=== PATIENT | male | born 1965 | race Caucasian/White ===

== ENCOUNTER 2019-08-19 20:51 | Emergency (ER) | payer BC ==
[2019-08-19] MEDS ORDERED: Lidocaine 1% with EPINEPHrine 1:100,000 10 ML MDV INJECT ONE (21:12)
[2019-08-19] MEDS ORDERED: Lidocaine 1% with EPINEPHrine 1:100,000 20 ML MDV ONE (21:14)
--- NOTE | 2019-08-19 21:32 | EDM.PDOC ---
ED HPI GENERAL MEDICAL PROBLEM - General Chief Complaint: Skin Complaint Stated Complaint: BLEEDING IN THE BACK Time Seen by Provider: 08/19/19 21:31 Source of Information: Reports: Patient History Limitations: Reports: No Limitations - History of Present Illness INITIAL COMMENTS - FREE TEXT/NARRATIVE: HISTORY AND PHYSICAL: History of present illness: Patient is a 53-year-old male presents to the ED with complaint of bleeding. Patient states this morning he had an abscess drained from his left buttock in [place]. He states it has been bleeding all day and soaked through the dressing that he changed this afternoon. He is on xarelto for history of pulmonary embolism. He denies any chest pain, shortness of breath, lightheaded, dizziness , syncope or pre syncope. Review of systems: As per history of present illness and below otherwise all systems reviewed and negative. Past medical history: As per history of present illness and as reviewed below otherwise noncontributory. Surgical history: As per history of present illness and as reviewed below otherwise noncontributory. Social history: No reported history of drug or alcohol abuse. Family history: As per history of present illness and as reviewed below otherwise noncontributory. Physical exam: General: Patient sitting comfortably in no acute distress and nontoxic appearing HEENT: Atraumatic, normocephalic, pupils reactive, negative for conjunctival pallor or scleral icterus, mucous membranes moist, throat clear, neck supple, nontender, trachea midline. No meningeal signs. Lungs: Clear to auscultation, breath sounds equal bilaterally, chest nontender. Heart: S1S2, regular, negative for clicks, rubs, or overt murmur. Abdomen: Soft, nondistended, nontender. Negative for masses or hepatosplenomegaly. Negative for costovertebral tenderness. No rigidity, rebound , guarding. Pelvis: Stable nontender. Genitourinary: Deferred. Rectal: Deferred. Skin: There is a 1.5cm incision to the left buttock with persistent bleeding. There is no purulent drainage. Extremities: Atraumatic, negative for cords or calf pain. Neurovascular unremarkable. Neuro: Awake, alert, oriented. Cranial nerves II through XII unremarkable. Cerebellum unremarkable. Motor and sensory unremarkable throughout. Exam nonfocal. Notes: Area was anesthetized with 5cm of 1% lidocaine with epi. Two sutures were placed using a 3-0 nylon. Bleeding controlled with this. Diagnostics: none Therapeutics: none Prescriptions: none Impression: Bleeding from wound Plan: Hold xarelto tomorrow. If still bleeding the following day, hold xarelto that day as well. Follow up with primary care provider Return to ED in 01-28 for suture removal, sooner as needed as discussed Definitive disposition and diagnosis as appropriate pending reevaluation and review of above. - Related Data Allergies Allergy/AdvReac Type Severity Reaction Status Date / Time No Known Allergies Allergy Verified 08/19/19 21:02 Home Meds: Home Meds Ezetimibe [Zetia] 10 mg PO DAILY 08/19/19 [History] Pioglitazone HCl 1 tab PO DAILY 08/19/19 [History] Rivaroxaban [Xarelto] 20 mg PO DAILY 08/19/19 [History] lisinopriL [Prinivil] 5 mg PO DAILY 08/19/19 [History] metFORMIN HCl [Metformin HCl] 1,000 mg PO DAILY 08/19/19 [History] Past Medical History Respiratory History: Reports: PE Endocrine/Metabolic History: Reports: Diabetes, Type II - Infectious Disease History Infectious Disease History: Reports: Chicken Pox - Past Surgical History HEENT Surgical History: Reports: Tonsillectomy Other GI Surgeries/Procedures: splenectomy Other Musculoskeletal Surgeries/Procedures:: 3 left knee surgeries Social & Family History - Tobacco Use Smoking Status *Q: Never Smoker - Caffeine Use Caffeine Use: Reports: None - Recreational Drug Use Recreational Drug Use: No ED ROS GENERAL - Review of Systems Review Of Systems: Comprehensive ROS is negative, except as noted in HPI. ED EXAM, SKIN/RASH Exam: See Below (see dictation) Course - Vital Signs Last Recorded V/S: Last Vital Signs Temp 98.0 F 08/19/19 20:59 Pulse 99 08/19/19 20:59 Resp 18 08/19/19 20:59 BP 119/77 08/19/19 20:59 Pulse Ox 99 08/19/19 20:59 - Orders/Labs/Meds Meds: Medications Discontinued Medications Generic Name Dose Route Start Last Admin Trade Name Freq PRN Reason Stop Dose Admin Lidocaine/Epinephrine 10 ml 08/19/19 21:12 08/19/19 21:17 Xylocaine 1% With Epinephrine 1:100,000 INJECT 08/19/19 21:13 Not Given ONETIME ONE Lidocaine/Epinephrine Confirm 08/19/19 21:14 08/19/19 21:16 Xylocaine 1% With Epinephrine 1:100,000 Administered 08/19/19 21:15 20 ml Dose Administration 20 ml .ROUTE .STK-MED ONE Departure - Departure Time of Disposition: 21:32 Disposition: Home, Self-Care 01 Condition: Good Clinical Impression: Bleeding from wound - Discharge Information Referrals: PCP,None [Primary Care Provider] - Forms: ED Department Discharge Additional Instructions: The following information is given to patients seen in the emergency department who are being discharged to home. This information is to outline your options for follow-up care. We provide all patients seen in our emergency department with a follow-up referral. The need for follow-up, as well as the timing and circumstances, are variable depending upon the specifics of your emergency department visit. If you don't have a primary care physician on staff, we will provide you with a referral. We always advise you to contact your personal physician following an emergency department visit to inform them of the circumstance of the visit and for follow-up with them and/or the need for any referrals to a consulting specialist. The emergency department will also refer you to a specialist when appropriate. This referral assures that you have the opportunity for follow-up care with a specialist. All of these measure are taken in an effort to provide you with optimal care, which includes your follow-up. Under all circumstances we always encourage you to contact your private physician who remains a resource for coordinating your care. When calling for follow-up care, please make the office aware that this follow-up is from your recent emergency room visit. If for any reason you are refused follow-up, please contact the [facility] Emergency Department at and asked to speak to the emergency department charge nurse. [facility] [address] [place] [id number] [facility] [address] [place] [id number] Hold xarelto tomorrow. If still bleeding the following day, hold xarelto that day as well. Follow up with primary care provider Return to ED in - for suture removal, sooner as needed as discussed Sepsis Event Note - Evaluation Sepsis Screening Result: No Definite Risk - Focused Exam Vital Signs: Vital Signs Temp Pulse Resp BP Pulse Ox 08/19/19 20:59 98.0 F 99 18 119/77 99 Date Exam was Performed: 08/19/19 Time Exam was Performed: 21:34
== END 2019-08-19 22:00 | disposition home or self-care (01) ==
LOC: MW.ED 20:51
DX: S31.829A Unspecified open wound of left buttock, initial encounter (principal); E11.9 Type 2 diabetes mellitus without complications; Z79.84 Long term (current) use of oral hypoglycemic drugs; Z79.01 Long term (current) use of anticoagulants; Z86.711 Personal history of pulmonary embolism; X58.XXXA Exposure to other specified factors, initial encounter
CPT/HCPCS: 12001; 99282; 99283

== ENCOUNTER 2020-03-28 09:12 | Emergency (ER) | payer BC, OTHER ==
--- NOTE | 2020-03-28 09:16 | EDM.PDOC ---
ED HPI GENERAL MEDICAL PROBLEM - General Chief Complaint: Upper Extremity Injury/Pain Stated Complaint: INJURY TO RT WRIST Time Seen by Provider: 03/28/20 09:20 Source of Information: Reports: Patient History Limitations: Reports: No Limitations - History of Present Illness INITIAL COMMENTS - FREE TEXT/NARRATIVE: 54-year-old male past medical history diabetes, hypertension, anticoagulant use presents for swelling to right wrist. Patient noted pain and swelling for the last couple of days. Denies any fevers, injury to the area, falls. No history of gout. R wrist Pain Score (Numeric/FACES): 8 - Related Data Allergies Allergy/AdvReac Type Severity Reaction Status Date / Time No Known Allergies Allergy Verified 03/28/20 09:25 Home Meds: Home Meds Rivaroxaban [Xarelto] 10 mg PO DAILY 08/19/19 [History] lisinopriL [Prinivil] 5 mg PO DAILY 08/19/19 [History] metFORMIN HCl [Metformin HCl] 500 mg PO BID 08/19/19 [History] Indomethacin 50 mg PO TID PRN 7 Days #21 capsule 03/28/20 [Rx] Past Medical History Respiratory History: Reports: PE Endocrine/Metabolic History: Reports: Diabetes, Type II - Infectious Disease History Infectious Disease History: Reports: Chicken Pox - Past Surgical History HEENT Surgical History: Reports: Tonsillectomy Other GI Surgeries/Procedures: splenectomy Other Musculoskeletal Surgeries/Procedures:: 3 left knee surgeries Social & Family History - Caffeine Use Caffeine Use: Reports: None ED ROS GENERAL - Review of Systems Review Of Systems: Comprehensive ROS is negative, except as noted in HPI. 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, normal color/capillary refill, no deformity) Neurological: Alert, Normal Gait Psychiatric: Normal Affect, Normal Mood Skin Exam: Warm, Dry, Intact, Normal Color Course - Vital Signs Last Recorded V/S: Last Vital Signs Temp 97.6 F 03/28/20 09:16 Pulse 91 03/28/20 09:16 Resp 18 03/28/20 09:16 BP 127/77 03/28/20 09:16 Pulse Ox 94 L 03/28/20 09:16 - Orders/Labs/Meds Meds: Medications Discontinued Medications Generic Name Dose Route Start Last Admin Trade Name Angeline PRN Reason Stop Dose Admin Acetaminophen 1,000 mg 03/28/20 09:26 03/28/20 09:38 Tylenol Extra Strength PO 03/28/20 09:27 1,000 mg ONETIME ONE Administration Ketorolac Tromethamine 30 mg 03/28/20 09:26 03/28/20 09:38 Toradol IM 03/28/20 09:27 30 mg ONETIME ONE Administration - Re-Assessments/Exams Free Text/Narrative Re-Assessment/Exam: 03/28/20 09:28 Patient presents with atraumatic pain and swelling to right wrist. Uncertain etiology, suspect potential gout. Will give Toradol and Tylenol for pain control. Will get x-ray of the wrist to ensure no bony deformity. Will follow up results and disposition accordingly. Patient does have a primary care physician that he is able to follow-up with. 03/28/20 10:19 Patient's pain greatly improved. Will discharge with short course of indomethacin and PMD follow-up as needed. Return precautions discussed Departure - Departure Time of Disposition: 10:19 Disposition: Home, Self-Care 01 Condition: Good Clinical Impression: Wrist pain Qualifiers: Laterality: right Qualified Code(s): M25.531 - Pain in right wrist - Discharge Information Instructions: Wrist Pain, Adult Referrals: PCP,None [Primary Care Provider] - Forms: ED Department Discharge Additional Instructions: Your x-rays showed mild degenerative joint disease. The cause of your symptoms cannot be certain, but it could be related to gout or carpal tunnel or arthritis. I sent some pain medicine to your pharmacy to symptomatically treat for gout and other causes of musculoskeletal pain. If symptoms are persistent I would recommend following up with your primary care physician for further assessment. If your pain is poorly controlled at home you are always welcome to come back to the emergency department for reassessment. You should also come back to the emergency department if you develop fevers. The following information is given to patients seen in the emergency department who are being discharged to home. This information is to outline your options for follow-up care. We provide all patients seen in our emergency department with a follow-up referral. The need for follow-up, as well as the timing and circumstances, are variable depending upon the specifics of your emergency department visit. If you don't have a primary care physician on staff, we will provide you with a referral. We always advise you to contact your personal physician following an emergency department visit to inform them of the circumstance of the visit and for follow-up with them and/or the need for any referrals to a consulting specialist. The emergency department will also refer you to a specialist when appropriate. This referral assures that you have the opportunity for follow-up care with a specialist. All of these measure are taken in an effort to provide you with optimal care, which includes your follow-up. Under all circumstances we always encourage you to contact your private physician who remains a resource for coordinating your care. When calling for follow-up care, please make the office aware that this follow-up is from your recent emergency room visit. If for any reason you are refused follow-up, please contact the [facility] Emergency Department at and asked to speak to the emergency department charge nurse. Please follow up with your primary care physician. If you do not have a primary care physician, see below: [facility] [address] [place] [id number] [facility] [address] [place] [phone] Sepsis Event Note (ED) - Focused Exam Vital Signs: Vital Signs Temp Pulse Resp BP Pulse Ox 03/28/20 09:16 97.6 F 91 18 127/77 94 L
[2020-03-28] MEDS ORDERED: Ketorolac 30 MG/ML SDV IM ONE (09:26)
[2020-03-28] MEDS ORDERED: Acetaminophen 500 MG Tab PO ONE (09:26)
--- NOTE | 2020-03-28 09:59 | CR ---
Indication: Atraumatic pain. Technique: Three views of the right wrist. Comparison: None Findings: Degenerative changes of the wrist are identified laterally. No fracture or subluxation is identified. Impression: Degenerative change Dictated by Cierra Franks MD @ Mar 28 2020 9:57AM Signed by Dr. Cierra Franks @ Mar 28 2020 9:57AM
== END 2020-03-28 10:52 | disposition home or self-care (01) ==
LOC: MW.ED 09:12
DX: M25.531 Pain in right wrist (principal); M25.431 Effusion, right wrist; E11.9 Type 2 diabetes mellitus without complications; I10 Essential (primary) hypertension; Z86.711 Personal history of pulmonary embolism; Z79.01 Long term (current) use of anticoagulants; Z79.899 Other long term (current) drug therapy
CPT/HCPCS: 73110; 96372; 99283; A9270; J1885

== ENCOUNTER 2022-12-14 06:55 | Day surgery (SDC) | payer BC ==
[~2022-12-14 06:55] MED LIST: Acetaminophen 1,000 MG in Premix Bag 1 BAG IV SCH; Albuterol 0.083% 2.5 MG/3 ML Neb Soln NEB PRN; HYDROmorphone 1 MG/ML Syringe IVPUSH PRN; Lactated Ringers 1,000 ML IV SCH; Metoclopramide 10 MG/2 ML SDV IVPUSH PRN; Morphine 2 MG/ML SYRINGE IVPUSH PRN; Naloxone 0.4 MG/ML SDV IVPUSH PRN; Ondansetron 4 MG/2 ML SDV IVPUSH PRN; Pregabalin 75 MG Cap PO SCH; ceFAZolin 2 GM in Sodium Chloride 0.9% 50 ML IV ONE; droPERidol 5 MG/2 ML SDV IVPUSH PRN; fentaNYL 50 MCG/ML SDV IVPUSH PRN
[2022-12-14] MEDS ORDERED: Scopolamine 1.5 MG Transdermal Patch TOP ONE (07:00)
[2022-12-14] MEDS ORDERED: EPINEPHrine 1 MG/1 ML Amp ONE (08:33)
[2022-12-14] MEDS ORDERED: Bupivacaine 0.5% 30 ML SDV ONE ×2 (08:33→09:09)
[2022-12-14] MEDS ORDERED: Ropivacaine 0.5% 5 MG/ML 30 ML SDV ONE (08:33)
[2022-12-14] MEDS ORDERED: Propofol 200 MG/20 ML SDV ONE (08:56)
[2022-12-14] MEDS ORDERED: Rocuronium Bromide 50 MG/5 ML Syringe ONE (08:56)
[2022-12-14] MEDS ORDERED: Lidocaine 2% 5 ML SDV ONE (08:56)
[2022-12-14] MEDS ORDERED: Ondansetron 4 MG/2 ML SDV ONE (08:56)
[2022-12-14] MEDS ORDERED: Dexamethasone 4 MG/ML 5 ML MDV ONE (08:56)
[2022-12-14] MEDS ORDERED: Sugammadex Sodium 200 MG/2 ML VIAL ONE (08:56)
[2022-12-14] MEDS ORDERED: Ketorolac 30 MG/ML SDV ONE (08:56)
[2022-12-14] MEDS ORDERED: fentaNYL 100 MCG/2 ML SDV ONE ×2 (08:56→09:53)
[2022-12-14] MEDS ORDERED: ceFAZolin 2 GM Vial ONE (09:36)
[2022-12-14] MEDS ORDERED: Morphine 10 MG/ML SDV ONE (11:58)
[2022-12-14] MEDS ORDERED: Naloxone 0.4 MG/ML SDV IVPUSH PRN (15:06)
[2022-12-14] MEDS ORDERED: Ondansetron 4 MG/2 ML SDV IVPUSH PRN (15:06)
[2022-12-14] MEDS ORDERED: HYDROmorphone 1 MG/ML Syringe IVPUSH PRN (15:06)
[2022-12-14] MEDS: metFORMIN 500 MG Tab PO SCH (17:39)
[2022-12-14] MEDS: Acetaminophen/HYDROcodone 325-10 MG Tab PO PRN (20:35)
[2022-12-14] MEDS: Enoxaparin 30 MG/0.3 ML Syringe SUBCUT SCH (20:37)
[2022-12-14] MEDS ORDERED: Rosuvastatin 10 MG Tab PO SCH (21:00)
[2022-12-14] MEDS ORDERED: Ezetimibe 10 MG Tab PO SCH (21:00)
[2022-12-15] MEDS ORDERED: Lisinopril 5 MG Tab PO SCH (09:00)
[2022-12-15] MEDS: metFORMIN 500 MG Tab PO SCH (09:23)
[2022-12-15] MEDS: Acetaminophen/HYDROcodone 325-10 MG Tab PO PRN (09:24)
[2022-12-15] MEDS: Enoxaparin 30 MG/0.3 ML Syringe SUBCUT SCH (09:26)
[2022-12-15] MEDS ORDERED: Rivaroxaban 10 MG Tab PO SCH (17:30)
== END 2022-12-15 12:20 | disposition home or self-care (01) ==
LOC: MW.SDS 06:55 → MW.MS 14:59 → MW.SDS 12-15 12:20
PROVIDERS: ATTEND Surgery
DX: K43.2 Incisional hernia without obstruction or gangrene (principal); M19.90 Unspecified osteoarthritis, unspecified site; E78.00 Pure hypercholesterolemia, unspecified; E11.9 Type 2 diabetes mellitus without complications; G89.29 Other chronic pain; Z79.01 Long term (current) use of anticoagulants; Z79.84 Long term (current) use of oral hypoglycemic drugs; Z79.899 Other long term (current) drug therapy; Z87.891 Personal history of nicotine dependence; Z86.711 Personal history of pulmonary embolism
CPT/HCPCS: 49595; 82947; A9270; J0131; J0171; J0690; J1100; J1650; J1885; J2270; J2405; J2704; J2795; J3010; J3490; J7120